=== PATIENT | female | born 1950 | race Caucasian/White ===

== ENCOUNTER → 2018-04-04 | Outpatient (CLI) | payer OTHER ==
[~2018-04-04] VITALS: Ht 172.7 cm; Wt 79.4 kg
[~2018-04-04] MED LIST: ASPIR 8181 MG PO; COMPAZINE10 MG PO; LISINOPRIL10 MG PO; POTASSIUM20 PO; PROTONIX40 M1 PO; REGLAN 10 MG TA10 MG PO; VITAMIN B-6100 MG PO; ZOFRAN ODT8 MG PO
--- NOTE | ~2018-04-04 | PATH ---
[facility] [address] [place] [address] PATHOLOGY RPT PROCEDURE Name: INGRID KRISHNA Room #: REG BORA Laurie.#: [id number] Admission: 04/04/18 Date of : 54 Discharge: Report #: [id number] Path Case #: [id number] [facility] Accession Number: [id number] . 01 Material submitted: . PART A: DUODENUM R/O INFECTION BIOPSY PART B: GASTRIC BODY R/O INFECTION BIOPSY PART C: GASTRIC POLYPS BIOPSY PART D: RANDOM RIGHT COLON BIOPSY R/O MICROSCOPIC COLITIS AND INFECTION PART E: TU LEFT COLON BIOPSY R/O MICROSCOPIC COLITIS INFECTION PART F: ASCENDING COLON POLYP BIOPSY PART G: SIGMOID POLYP . 01 Clinician provided ICD-10: R11.2 R19.7 . 01 Clinical history: . Nodular, vomiting, diarrhea, history peritoneal carcinomatosis Gastritis, duodenitis, gastric polyps, colon polyps A/B: Rule out infection D/E: Rule out microscopic colitis and infection . 02 Diagnosis: A. Small bowel mucosa, duodenum, endoscopic biopsy: - Acute inflammation and fundic-type metaplasia compatible with active peptic duodenitis. - Minimal villous blunting present. - No increase in intraepithelial lymphocytes. . B. Gastric mucosa, gastric body rule out infection, endoscopic biopsy: - Mild focal chronic inflammation. - Negative for intestinal metaplasia or atrophy. - Negative for Helicobacter pylori (properly controlled immunohistochemical stain performed). . C. Polyps, gastric polyps, endoscopic biopsy: - Dilated fundic glands, compatible with fundic gland polyps. - Negative for dysplasia. . D. Large intestinal mucosa, random right colon, endoscopic biopsy: - Pnlz-rd-meyvanbi active colitis associated with subtle lamina propria fibrosis and regenerative atypia within surface, please see comment. - Negative for dysplasia or malignancy. - Negative for microscopic colitis. . E. Large intestinal mucosa, random left colon, endoscopic biopsy: - Rztj-ab-lkvtofbn active colitis associated with subtle lamina propria [facility] [address] [place] [address] PATHOLOGY RPT PROCEDURE Name: INGRID KRISHNA Room #: REG [facility]..#: [id number] Admission: 04/04/18 Date of : 54 Discharge: Report #: [id number] Path Case #: [id number] fibrosis and regenerative atypia within surface, please see comment. - Negative for dysplasia or malignancy. - Negative for microscopic colitis. . F. Polyp, ascending colon polyp, endoscopic biopsy: - Tubular adenoma admixed with hyperplastic changes. - Negative for high-grade dysplasia. - Background mucosa showing plxg-xc-vfjifdky active colitis. . G. Polyp, sigmoid polyp, endoscopic biopsy: - Tubular adenoma. - Negative for high-grade dysplasia. (IUV:alisa; 04/05/2018) QMS/04/05/2018 . 02 Comment: Examination of the large intestinal mucosa shows acute cryptitis, lamina propria cellularity comprised of lymphocytes and abundant plasma cells, as well as subtle fibrosis. There is regenerative surface atypia present. Fibrin thrombi are not identified within any of the lamina propria vessels. The background crypts show regenerative changes as well. Exophytic ulcers or fibrinopurulent material is not identified. Overall, findings are suggestive of acute colitis involving the entire large intestine. Similar changes are noted within the background large intestinal mucosa identified in "ascending colon polyp" biopsy tissue. The differential diagnosis includes infectious-type of colitis, therapy related changes within the mucosa (history of carcinomatosis provided), drug-induced colitis, regenerative changes secondary to a prior episode of active colitis, regenerative changes secondary to ischemic colitis, as well as inflammatory bowel disease. Clinical correlation is required. . Special stains and immunohistochemical stains are performed on blocks D and E. AFB stain shows no mycobacteria in both samples. GMSF is negative for fungal hyphal elements in both samples. PAS is negative for organisms in both samples. Ae1/Ae3 performed on both blocks fails to show single tumor cells within the lamina propria. . Co-review: Dr. Caty Chavez (parts D and E only) . (IUV:alisa; 04/05/2018) . 02 Electronically signed: . Brooke Anna MD, Pathologist NPI- [id number] . 01 Gross description: . A. The specimen is received in formalin, labeled "Ingrid Krishna, [facility] [address] [place] [address] PATHOLOGY RPT PROCEDURE Name: INGRID KRISHNA Room #: REG BORA Kiran#: [id number] Admission: 04/04/18 Date of : 54 Discharge: Report #: [id number] Path Case #: [id number] duodenum rule out infection BX" and consists of multiple fragments of soft minor tissue measuring 1.2 x 0.7 x 0.2 cm in aggregate which are entirely submitted in A1. . B. The specimen is received in formalin, labeled "Rodenberger, Ingrid, gastric body rule out infection BX" and consists of 4 fragments of soft minor tissue measuring between 0.3 x 0.2 x 0.1 cm and 0.5 x 0.3 x 0.1 cm. They are entirely submitted in B1. . C. The specimen is received in formalin, labeled "Rodenberger, Ingrid, gastric polyps BX" and consists of 5 fragments of soft minor tissue measuring 1.4 x 0.8 x 0.2 cm in aggregate which are entirely submitted in C1. . D. The specimen is received in formalin, labeled "Rodadrianeer, Ingrid, random R colon BX rule out microscopic colitis/infection" and consists of multiple fragments of soft minor tissue measuring 1.5 x 0.5 x 0.2 cm in aggregate which are entirely submitted in D1. . E. The specimen is received in formalin, labeled "Rodadrianeer, Ingrid, random L colon BX rule out microscopic colitis and infection" and consists of multiple fragments of soft minor tissue measuring 1.1 x 0.9 x 0.2 cm in aggregate which are entirely submitted in E1. . F. The specimen is received in formalin, labeled "Rodenberger, Ingrid, ascending colon polyp BX" and consists of a fragment of soft minor tissue measuring 0.3 x 0.3 x 0.1 cm which is entirely submitted in F1. . G. The specimen is received in formalin, labeled "Rodenberger, Ingrid, sigmoid polyp BX" and consists of 2 fragments of soft minor tissue measuring 0.4 x 0.2 x 0.1 cm and 0.2 x 0.2 x 0.1 cm. They are entirely submitted in G1. (SDY; 04/04/2018) SYU/SYU . 02 Pathologist provided ICD-10: K29.80, K29.50, K52.9, D12.2, D12.5, K31.7 . 02 CPT . 619291, 612584, 765075, 605164, 578284, 057047, 031323, 850351, 279702, 984339, 161792, 641915, 136322, [id number] Specimen Comment: A courtesy copy of this report has been sent to Specimen Comment: [phone]. Specimen Comment: Report sent to Performed at: [address] [id number] MD Mati Salazar MD Phone: [phone] [address] [address] PATHOLOGY RPT PROCEDURE Name: INGRID KRISHNA Room #: REG BORA Kiran#: [id number] Admission: 04/04/18 Date of : 54 Discharge: Report #: [id number] Path Case #: [id number] Performed at: [address] [id number] MD Brooke Anna MD Phone: [phone]
== END | disposition home or self-care (01) ==
LOC: GI 06:23
DX: D12.2 Benign neoplasm of ascending colon (principal); D12.5 Benign neoplasm of sigmoid colon; K52.9 Noninfective gastroenteritis and colitis, unspecified; K22.2 Esophageal obstruction; K31.89 Other diseases of stomach and duodenum; K29.80 Duodenitis without bleeding; K29.50 Unspecified chronic gastritis without bleeding; K31.7 Polyp of stomach and duodenum; K44.9 Diaphragmatic hernia without obstruction or gangrene; I10 Essential (primary) hypertension; D64.9 Anemia, unspecified; Z79.899 Other long term (current) drug therapy; Z85.028 Personal history of other malignant neoplasm of stomach
CPT/HCPCS: 62110; 62900